=== PATIENT | female | born 1970 | race Caucasian/White ===

== ENCOUNTER → 2018-09-12 07:50 | Outpatient (CLI) | payer OTHER, SELFPAY ==
--- NOTE | 2018-09-12 | DI.MG.S_ITS ---
BILATERAL DIGITAL SCREENING MAMMOGRAM 3D/2D WITH CAD: 09/12/2018 CLINICAL: Baseline exam. Routine screening. No prior exams were available for comparison. There are scattered fibroglandular elements in both breasts. Current study was also evaluated with a Computer Aided Detection (CAD) system. No significant masses, calcifications, or other findings are seen in either breast. IMPRESSION: NEGATIVE There is no mammographic evidence of malignancy. A 1 year screening mammogram is recommended. This exam was interpreted at Station ID: [id number]. NOTE: For mammograms, a report in lay terms will be sent to the patient. Approximately 15% of breast malignancies will not be visualized mammographically. In the management of a palpable breast mass, a negative mammogram must not discourage biopsy of a clinically suspicious lesion. Electronically Signed By: Ashleigh wong/carmelita:09/12/2018 09:11:14 letter sent: Normal Exam ACR BI-RADS Category 1: Negative 3341F
== END ==
PROVIDERS: PCP Internal Medicine; Visit Provider Internal Medicine
DX: Z12.31 Encounter for screening mammogram for malignant neoplasm of breast (principal)
CPT/HCPCS: 77063; 77067

== ENCOUNTER → 2018-09-27 10:25 | Outpatient (CLI) | payer OTHER, SELFPAY ==
--- NOTE | 2018-09-27 | DI.US.S_ITS ---
PROCEDURE: US PELVIC COMPLETE INDICATIONS: MENORRHAGIA/ABNORMAL BLEEDING TECHNIQUE: Real-time scanning was performed of the pelvic organs, with image documentation. Additional endovaginal scanning was necessary due to incomplete visualization of the adnexal and endometrial structures by transabdominal scanning. COMPARISON: None. FINDINGS: Transabdominal scanning: Limited scanning through the kidneys shows no hydronephrosis. No pathologic free abdominal or pelvic fluid. Endovaginal scanning: Uterus: Uterus is normal in size at 15.2 x 4.9 x 7.0 cm. The endometrium measures 18 mm in combined thickness and there is mild cystic change. Ovaries: 3.3 cm simple left ovarian cyst; otherwise normal ovaries. IMPRESSION: 1. Thickened endometrial complex with mild cystic change. Recommend short-term followup pelvic ultrasound in 6 weeks to assess for interval thinning. 2. Simple left ovarian cyst. Dictated by: Paolo HU Interpreted: Nicholas Haas MD on 09/27/2018 at 11:53 Approved by: Nicholas Haas M.D. on 09/27/2018 at 14:01
== END ==
PROVIDERS: PCP Internal Medicine; Visit Provider Internal Medicine
DX: N92.0 Excessive and frequent menstruation with regular cycle (principal); R93.89 Abnormal findings on diagnostic imaging of other specified body structures; N83.292 Other ovarian cyst, left side
CPT/HCPCS: 76830; 76856

== ENCOUNTER → 2020-09-01 17:17 | Outpatient (CLI) | payer OTHER, SELFPAY ==
--- NOTE | 2020-09-01 17:19 | DI.MG.S_ITS ---
BILATERAL DIGITAL SCREENING MAMMOGRAM 3D/2D WITH CAD: 09/01/2020 CLINICAL: Routine screening. Comparison is made to exam dated: 09/12/2018 [facility]. There are scattered fibroglandular elements in both breasts. Current study was also evaluated with a Computer Aided Detection (CAD) system. There are possible new grouped fine calcifications in the left breast posterior depth superior region seen on the mediolateral oblique view only. No other significant masses, calcifications, or other findings are seen in either breast. IMPRESSION: INCOMPLETE: NEEDS ADDITIONAL IMAGING EVALUATION The possible new grouped fine calcifications in the left breast most likely are deodorant residue and are indeterminate. Mediolateral, spot magnification, and additional views are recommended. This exam was interpreted at Station ID: [id number]. NOTE: For mammograms, a report in lay terms will be sent to the patient. Approximately 15% of breast malignancies will not be visualized mammographically. In the management of a palpable breast mass, a negative mammogram must not discourage biopsy of a clinically suspicious lesion. Electronically Signed By: Henry jain/:09/02/2020 07:23:35 letter sent: Additional Imaging Needed ACR BI-RADS Category 0: Incomplete 3340F
== END ==
PROVIDERS: PCP Internal Medicine; Referring Provider Internal Medicine; Visit Provider Internal Medicine
DX: Z12.31 Encounter for screening mammogram for malignant neoplasm of breast (principal)
CPT/HCPCS: 77063; 77067

== ENCOUNTER → 2020-09-10 12:00 | Outpatient (CLI) | payer OTHER, SELFPAY ==
--- NOTE | 2020-09-10 12:02 | DI.MG.S_ITS ---
UNILATERAL LEFT DIGITAL DIAGNOSTIC MAMMOGRAM 3D/2D WITH ADDITIONAL VIEWS: 09/10/2020 CLINICAL: Additional evaluation requested from prior study. Comparison is made to exams dated: 09/01/2020 mammogram and 09/12/2018 mammogram - [facility]. There are scattered fibroglandular elements in left breast. There are possible a grouped fine calcifications in the left breast posterior depth superior region seen on the mediolateral oblique view only. These are less prominent and decreased in number. No other significant masses or calcifications are seen in the breast. IMPRESSION: PROBABLY BENIGN The vast majority of the previously seen grouped fine calcifications in the left breast on the prior study are no longer demonstrated. 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 There are a few small round and lucent centered calcifications in this region which remain, likely dermal and benign. A follow-up mammogram in 6 months is recommended to demonstrate stability. This exam was interpreted at Station ID: [id number]. NOTE: For mammograms, a report in lay terms will be sent to the patient. Approximately 15% of breast malignancies will not be visualized mammographically. In the management of a palpable breast mass, a negative mammogram must not discourage biopsy of a clinically suspicious lesion. Electronically Signed By: Stephane Robles M.D. jr/:09/10/2020 12:27:05 letter sent: Followup Recommended ACR BI-RADS Category 3: Probably benign 3343F
== END ==
PROVIDERS: PCP Internal Medicine; Referring Provider Internal Medicine; Visit Provider Internal Medicine
DX: R92.8 Other abnormal and inconclusive findings on diagnostic imaging of breast (principal)
CPT/HCPCS: 77065; G0279

== ENCOUNTER → 2021-05-03 10:14 | Outpatient (CLI) | payer OTHER, SELFPAY ==
--- NOTE | 2021-05-03 | DI.MG.S_ITS ---
UNILATERAL LEFT DIGITAL DIAGNOSTIC MAMMOGRAM 3D/2D SHORT-TERM FOLLOW-UP: 05/03/2021 CLINICAL: Short term follow up for the left breast. Comparison is made to exams dated: 09/10/2020 mammogram, 09/01/2020 mammogram, and 09/12/2018 mammogram - [facility]. There are scattered fibroglandular elements in left breast. There are possible stable grouped fine calcifications in the left breast posterior depth superior region seen on the mediolateral oblique view only. These are seen in additional views. No other significant masses or calcifications are seen in the breast. IMPRESSION: PROBABLY BENIGN The possible stable grouped fine calcifications in the left breast most likely are deodorant residue and are probably benign. A follow-up mammogram in 6 months is recommended. A follow-up mammogram in 6 months is recommended to demonstrate stability. This exam was interpreted at Station ID: [id number]. NOTE: For mammograms, a report in lay terms will be sent to the patient. Approximately 15% of breast malignancies will not be visualized mammographically. In the management of a palpable breast mass, a negative mammogram must not discourage biopsy of a clinically suspicious lesion. Electronically Signed By: Stephane Robles M.D., jr/carmelita:05/03/2021 11:08:44 letter sent: Followup Recommended ACR BI-RADS Category 3: Probably benign 3343F
== END ==
PROVIDERS: PCP Internal Medicine; Referring Provider Internal Medicine; Visit Provider Internal Medicine
DX: R92.8 Other abnormal and inconclusive findings on diagnostic imaging of breast (principal)
CPT/HCPCS: 77065; G0279

== ENCOUNTER → 2021-06-01 08:08 | Outpatient (CLI) | payer OTHER, SELFPAY ==
--- NOTE | 2021-06-01 08:09 | DI.US.S_ITS ---
PROCEDURE: US PELVIC COMPLETE INDICATIONS: DUB TECHNIQUE: Real-time scanning was performed of the pelvic organs, with image documentation. Additional endovaginal scanning was necessary due to incomplete visualization of the adnexal and endometrial structures by transabdominal scanning. COMPARISON: [facility], , US PELVIC COMPLETE, 09/27/2018, 10:45. FINDINGS: Uterus: Uterus is anteverted and normal in size at 9.4 x 6.9 x 7.7 cm. The myometrium is homogeneous. The endometrium measures 16 mm combined thickness. Ovaries: Right ovary measures 5.5 x 4.5 x 4.9 cm and there is a 4.8 cm complex septated ovarian cyst. Color-flow Doppler demonstrates no internal flow. Left ovary is not visualized. Other: No pathologic free abdominal or pelvic fluid. IMPRESSION: 1. Abnormal thickening of the endometrial complex measuring up to 16.0 mm. Although findings may be related to endometrial hyperplasia, other neoplastic processes including endometrial carcinoma cannot be excluded and endometrial biopsy is recommended for pathologic diagnosis. 2. Probable hemorrhagic right ovarian cyst versus endometrioma. Recommend short-term follow-up pelvic ultrasound in 6-12 weeks to assess for interval resolution. We strive to produce accurate, complete, and clear reports of imaging services. To assist us in improving patient care, this report was composed using standard report templates and voice recognition software. Therefore, it may contain abnormal punctuation, insertions and/or omissions. Occasional wrong-word or sound-alike substitutions may occur. Though we review the report and make efforts to correct it, we do recommend that the report be read carefully in proper context to recognize any text inaccuracies. Dictated by: Paolo Ortiz [facility] Interpreted: Claire Enamorado MD on 06/01/2021 at 16:56 Transcribed by: CELIA on 06/01/2021 at 16:58 Approved by: Claire Enamorado MD, PhD on 06/01/2021 at 17:48
== END ==
PROVIDERS: PCP Internal Medicine; Referring Provider Obstetrics & Gynecology; Visit Provider Obstetrics & Gynecology
DX: N92.4 Excessive bleeding in the premenopausal period (principal); R93.89 Abnormal findings on diagnostic imaging of other specified body structures
CPT/HCPCS: 76830; 76856

== ENCOUNTER → 2021-11-19 10:21 | Outpatient (CLI) | payer OTHER, SELFPAY ==
--- NOTE | 2021-11-19 | DI.MG.S_ITS ---
BILATERAL DIGITAL DIAGNOSTIC MAMMOGRAM 3D/2D: 11/19/2021 CLINICAL: Patient returns for 6 month follow up on left breast for possible calcifications. Due for bilateral. Comparison is made to exams dated: 05/03/2021 mammogram, 09/10/2020 mammogram, 09/01/2020 mammogram, and 09/12/2018 mammogram - [facility]. There are scattered fibroglandular elements in both breasts. The previously seen grouped fine calcifications in the left breast posterior depth superior region seen on the mediolateral oblique view only are no longer seen and most likely were deodorant residue. These are not seen in additional views. No other significant masses, calcifications, or other findings are seen in either breast. IMPRESSION: BENIGN There is no mammographic evidence of malignancy. Return to annual mammogram screening schedule is recommended. This exam was interpreted at Station ID: [id number]. NOTE: For mammograms, a report in lay terms will be sent to the patient. Approximately 15% of breast malignancies will not be visualized mammographically. In the management of a palpable breast mass, a negative mammogram must not discourage biopsy of a clinically suspicious lesion. Electronically Signed By: Stephane Robles M.D. jr/:11/22/2021 11:30:53 Entry: - 11/22/2021 11:34:44 letter sent: Normal Exam ACR BI-RADS Category 2: Benign Finding(s) 3342F
== END ==
PROVIDERS: PCP Internal Medicine; Referring Provider Internal Medicine; Visit Provider Internal Medicine
DX: R92.8 Other abnormal and inconclusive findings on diagnostic imaging of breast (principal)
CPT/HCPCS: 77066; G0279

== ENCOUNTER → 2024-11-22 08:33 | Outpatient (CLI) | payer OTHER, SELFPAY ==
[2024-11-22 09:31] LABS: Add Manual Diff / Slide Review NO; Basophils Absolute Auto 0 /uL (0-100); Basophils Percent Auto 0.4 % (0-2); Eosinophils Absolute Auto 100 /uL (0-450); Eosinophils Percent Auto 1.1 % (2-4); Hematocrit 42.8 % (36-46); Hemoglobin 14.7 g/dL (12.0-16.0); Lymphocytes Absolute Auto 1800 /uL (1100-4500); Lymphocytes Percent Auto 21.5 % (25-40); Mean Corpuscular HGB Conc 34.2 % (30-36); Mean Corpuscular Hemoglobin 30.2 PG (26-34); Mean Corpuscular Volume 88.2 fL (80-100); Monocytes Absolute Auto 600 /uL (0-900); Monocytes Percent Auto 6.5 % (3-14); Neutrophils Absolute Auto 5900 /uL (1500-7000); Neutrophils Percent Auto 70.5 % (50-75); Platelet Count 257 X10^3/uL (150-400); Red Blood Cell Count 4.85 X10^6/uL (4.0-5.2); Red Cell Distribution Width 14.3 % (11.6-14.8); White Blood Cell Count 8.4 X10^3/uL (4.5-11.0)
[2024-11-22 10:29] LABS: Vitamin D 25 Hydroxy (D3) 39.5 ng/mL (30.0-100.0)
[2024-11-22 10:46] LABS: Thyroid Stimulating Hormone 1.86 uIU/mL (0.47-4.68)
== END ==
PROVIDERS: PCP Family Medicine
DX: L64.8 Other androgenic alopecia (principal)
CPT/HCPCS: 36415; 82306; 84439; 84443; 85025

== ENCOUNTER → 2024-12-02 11:56 | Outpatient (CLI) | payer OTHER, SELFPAY ==
--- NOTE | 2024-12-02 11:58 | DI.US.S_ITS ---
PROCEDURE: US SOFT TISSUE HEAD AND NECK INDICATIONS: Enlarged lymph node in neck TECHNIQUE: Real-time scanning was performed of the neck region of interest, with image documentation. COMPARISON: None. FINDINGS: No cyst, solid mass, or enlarged lymph node. IMPRESSION: No abnormalities in the region of concern. Dictated by: Gale Martins M.D. on 12/03/2024 at 12:12 Approved by: Gale Martins M.D. on 12/03/2024 at 12:12
== END ==
LOC: US 11:57
PROVIDERS: PCP Family Medicine; Referring Provider Family Medicine; Visit Provider Family Medicine
DX: R59.0 Localized enlarged lymph nodes (principal)
CPT/HCPCS: 76536